=== PATIENT | male | born 1945 | race Caucasian/White ===

== ENCOUNTER 2021-02-21 22:09 | Observation (INO) | payer OTHER ==
[2021-02-21] MEDS ORDERED: MAG HYDROX/AL HYDROX/SIMETH 30 ML UNIT-DOSE CUP PO ONE (23:06)
[2021-02-21] MEDS ORDERED: ACETAMINOPHEN 325 MG TABLET (FP) PO ONE (23:07)
[2021-02-21] MEDS ORDERED: FAMOTIDINE 20 MG/50 ML IVPB 20 MG/50 ML MG IVPB ONE ×2 (23:07→23:20)
[2021-02-21] MEDS ORDERED: ASPIRIN 81 MG CHEWABLE TABLETS ONE (23:10)
[2021-02-21 23:13] LABS: EOS % 14.3 % (0-4.5); HEMATOCRIT 36.7 % (35.4-49); HEMOGLOBIN 12.7 GM/dL (11.7-16.9); MCH 32.6 pg (25.7-33.7); MCHC 34.5 g/dl (32.0-35.9); MEAN CELL VOLUME 94.6 fl (80-96); MEAN PLT VOLUME 7.9 fl (7.5-11.1); MONO % 8.8 % (3.8-10.2); NEUT % 48.9 % (42.8-82.8); PLATELET COUNT 181 10^3/uL (134-434); RBC 3.88 M/mm3 (4.00-5.60); RDW 14.1 % (11.9-15.9); WHITE BLOOD COUNT 7.7 K/mm3 (4.0-10.0)
[2021-02-21] MEDS: ASPIRIN 81 MG CHEWABLE TABLETS PO ONE ×2 (23:16→23:18)
[2021-02-21] MEDS ORDERED: ASPIRIN 81 MG CHEWABLE TABLETS PO ONE (23:17)
[2021-02-21] MEDS ORDERED: ACETAMINOPHEN 325 MG TABLET (FP) ONE (23:19)
[2021-02-21] MEDS ORDERED: MAG HYDROX/AL HYDROX/SIMETH 30 ML UNIT-DOSE CUP ONE (23:19)
[2021-02-21 23:29] LABS: PROTHROMBIN TIME (PATIENT) 12.3 SEC (9.7-13.0)
[2021-02-21 23:36] LABS: CHLORIDE 108 mmol/L (98-107); SODIUM 142 mmol/L (136-145)
[2021-02-21 23:40] LABS: CALCIUM 8.6 mg/dL (8.5-10.1)
[2021-02-21 23:41] LABS: ALBUMIN 3.7 g/dl (3.4-5.0); ANION GAP 6 MMOL/L (8-16); BLOOD UREA NITROGEN 21.4 mg/dL (7-18); CO2 27 mmol/L (21-32); GLUCOSE,RANDOM 116 mg/dL (74-106)
[2021-02-21 23:44] LABS: CREATININE 1.2 mg/dL (0.55-1.3); SGOT/AST 58 U/L (15-37); SGPT/ALT 42 U/L (13-61)
[2021-02-21 23:45] LABS: BILIRUBIN,TOTAL 0.4 mg/dL (0.2-1); TOT PROT 7.9 g/dl (6.4-8.2)
[2021-02-21 23:47] LABS: ALK PHOS 103 U/L (45-117)
[2021-02-22 04:14] LABS: URINE APPEARANCE CLEAR; URINE BILIRUBIN NEGATIVE (NEGATIVE); URINE COLOR YELLOW; URINE GLUCOSE (UA) NEGATIVE (NEGATIVE); URINE KETONE NEGATIVE (NEGATIVE); URINE LEUK ESTERASE NEGATIVE (NEGATIVE); URINE NITRITE NEGATIVE (NEGATIVE); URINE PROTEIN NEGATIVE (NEGATIVE)
[2021-02-22 07:08] VITALS: BMI 28.0
[2021-02-22 07:12] LABS: BASO % 0.5 % (0-2.0); EOS % 8.2 % (0-4.5); HEMATOCRIT 37.2 % (35.4-49); HEMOGLOBIN 12.8 GM/dL (11.7-16.9); LYMPH % 26.1 % (8-40); MCH 32.5 pg (25.7-33.7); MCHC 34.3 g/dl (32.0-35.9); MEAN CELL VOLUME 94.6 fl (80-96); MEAN PLT VOLUME 8.3 fl (7.5-11.1); MONO % 8.3 % (3.8-10.2); NEUT % 56.9 % (42.8-82.8); PLATELET COUNT 170 10^3/uL (134-434); RBC 3.93 M/mm3 (4.00-5.60); RDW 13.9 % (11.9-15.9); WHITE BLOOD COUNT 8.4 K/mm3 (4.0-10.0)
[2021-02-22 07:42] LABS: CHLORIDE 110 mmol/L (98-107); SODIUM 142 mmol/L (136-145)
[2021-02-22 08:00] LABS: ALBUMIN 3.5 g/dl (3.4-5.0); ANION GAP 8 MMOL/L (8-16); BLOOD UREA NITROGEN 17.9 mg/dL (7-18); CALCIUM 8.3 mg/dL (8.5-10.1); CO2 24 mmol/L (21-32); GLUCOSE,RANDOM 114 mg/dL (74-106)
[2021-02-22 08:02] LABS: SGPT/ALT 223 U/L (13-61)
[2021-02-22 08:03] LABS: CHOLESTEROL 163 mg/dL (50-200); PHOSPHOROUS 2.2 mg/dL (2.5-4.9); SGOT/AST 336 U/L (15-37)
[2021-02-22 08:04] LABS: ALK PHOS 109 U/L (45-117); BILIRUBIN,TOTAL 0.8 mg/dL (0.2-1); LDL CHOLESTEROL (ONLY SJRH) 95 mg/dL (5-100); MAGNESIUM 2.1 mg/dL (1.8-2.4); TOT PROT 7.4 g/dl (6.4-8.2); TRIGLYCERIDES 80 mg/dL (0-150)
[2021-02-22 08:31] LABS: HDL CHOLESTEROL 40 mg/dL (40-60)
[2021-02-22] MEDS ORDERED: NAPH,MB-DB/K PH,MBDB POWDER PACKET PO ONE (09:26)
[2021-02-22] MEDS ORDERED: ENOXAPARIN NA (PORCINE) 40 MG/0.4 ML DISP.SYRIN SQ SCH (10:00)
[2021-02-22] MEDS ORDERED: FAMOTIDINE 20 MG TABLET PO SCH (10:00)
[2021-02-22] MEDS: amLODIPine BESYLATE 5 MG TABLET (FP) PO SCH (12:12)
[2021-02-22] MEDS: TAMSULOSIN HCL 0.4 MG CAP PO SCH (12:12)
[2021-02-22 14:29] LABS: AMYLASE 41 U/L (25-115); LIPASE 60 U/L (73-393)
[2021-02-22] MEDS ORDERED: MELATONIN 5 MG TABLETS PO ONE (21:29)
[2021-02-23 07:00] VITALS: PULSE 56
[2021-02-23 08:26] LABS: BASO % 1.1 % (0-2.0); EOS % 17.3 % (0-4.5); HEMATOCRIT 35.5 % (35.4-49); HEMOGLOBIN 12.2 GM/dL (11.7-16.9); LYMPH % 26.1 % (8-40); MCH 32.8 pg (25.7-33.7); MCHC 34.3 g/dl (32.0-35.9); MEAN CELL VOLUME 95.6 fl (80-96); MEAN PLT VOLUME 8.4 fl (7.5-11.1); MONO % 9.9 % (3.8-10.2); NEUT % 45.6 % (42.8-82.8); PLATELET COUNT 166 10^3/uL (134-434); RBC 3.72 M/mm3 (4.00-5.60); RDW 14.4 % (11.9-15.9); WHITE BLOOD COUNT 6.2 K/mm3 (4.0-10.0)
[2021-02-23 08:50] LABS: ALBUMIN 3.2 g/dl (3.4-5.0); BLOOD UREA NITROGEN 12.8 mg/dL (7-18); CALCIUM 8.3 mg/dL (8.5-10.1)
[2021-02-23 08:51] LABS: MAGNESIUM 2.1 mg/dL (1.8-2.4)
[2021-02-23 08:53] LABS: CREATININE 0.9 mg/dL (0.55-1.3)
[2021-02-23 08:55] LABS: BILIRUBIN,TOTAL 1.9 mg/dL (0.2-1); TOT PROT 6.8 g/dl (6.4-8.2)
[2021-02-23] MEDS ORDERED: REGADENOSON 0.4 MG/5 ML PRE-FILLED SYRINGE IVPUSH ONE ×2 (09:44→10:45)
[2021-02-23 11:31] VITALS: BP 130/74; TEMP 98.8
[2021-02-23] MEDS: amLODIPine BESYLATE 5 MG TABLET (FP) PO SCH (13:16)
[2021-02-23] MEDS: TAMSULOSIN HCL 0.4 MG CAP PO SCH (13:16)
[2021-02-23 18:56] LABS: BILIRUBIN,DIRECT 0.6 mg/dL (0.0-0.2)
[2021-02-24 13:07] LABS: HEP B CORE AB, TOT Negative (Negative)
== END 2021-02-23 16:37 | disposition home or self-care (01) ==
LOC: JER 22:09 → JERBED 23:29 → UNDOADMOB 23:29 → OBSVTOIN 02-22 01:00 → INTOOBSV 02-22 01:00 → JERBED 02-22 04:07 → J4W 02-22 04:07 → JERBED 02-22 10:41
PROVIDERS: ADMIT Internal Medicine; ATTEND Student in an Organized Health Care Education/Training Program
PROC: 3E033GC Introduction of Other Therapeutic Substance into Peripheral Vein, Percutaneous Approach (ICD-10-PCS; principal; 2021-02-22)
PROC: 3E013GC Introduction of Other Therapeutic Substance into Subcutaneous Tissue, Percutaneous Approach (ICD-10-PCS; 2021-02-22)
DX: R07.2 Precordial pain (principal); R73.03 Prediabetes; G30.9 Alzheimer's disease, unspecified; F02.80 Dementia in other diseases classified elsewhere, unspecified severity, without behavioral disturbance, psychotic disturbance, mood disturbance, and anxiety; R10.13 Epigastric pain; R94.5 Abnormal results of liver function studies; N40.0 Benign prostatic hyperplasia without lower urinary tract symptoms; I10 Essential (primary) hypertension; E78.5 Hyperlipidemia, unspecified; I44.0 Atrioventricular block, first degree
CPT/HCPCS: 36415; 70450-TC; 71045-TC-FY; 74181-TC; 76705-TC; 78452-TC; 80053; 80061; 81003; 82150; 82248; 82607; 82747; 82962; 83036; 83540; 83550; 83690; 83721; 83735; 84100; 84443; 84484; 85014; 85025; 85610; 85730; 86704; 86706; 86707; 86708; 86709; 86803; 87340; 93005; 93010; 93017; 93306-TC; 96365; 96372; 96375; 99285-25; A9502; C9803; G0378; J2785; U0003; U0005

== ENCOUNTER 2021-06-01 04:33 | Day surgery (SDC) | payer OTHER ==
[2021-05-31 17:27] VITALS: BMI 27.7
[2021-06-01] MEDS ORDERED: PROPOFOL 20 ML ONE ×2 (08:29→10:10)
[2021-06-01] MEDS ORDERED: LIDOCAINE HCL/PF 2% SDV 5ML VIAL ONE (08:30)
[2021-06-01] MEDS ORDERED: DEXAMETHASONE SOD PHOSPHATE 4 MG/1 ML VIAL ONE (08:30)
[2021-06-01] MEDS ORDERED: ROCURONIUM BROMIDE 50 MG/5 ML SYRINGE ONE (08:36)
[2021-06-01] MEDS ORDERED: BUPIVACAINE HCL/PF 0.5% (5MG/ML) 10 ML VIAL ONE (09:08)
[2021-06-01] MEDS ORDERED: ceFAZolin SODIUM 1 GM VIAL ONE (09:18)
[2021-06-01] MEDS ORDERED: ONDANSETRON 4 MG/2 ML VIAL IVPUSH PRN (09:24)
[2021-06-01] MEDS ORDERED: oxyCODONE HCL 5 MG TABLET PO PRN (09:24)
[2021-06-01] MEDS ORDERED: LACTATED RINGERS SOLUTION 1,000 ML IV SCH (09:30)
[2021-06-01] MEDS ORDERED: BUPIVACAINE LIPOSOME/PF (EXPAREL) 266 MG/20 ML VIAL ONE (09:40)
[2021-06-01] MEDS ORDERED: ePHEDrine SULFATE 50 MG/1 ML AMPULE ONE (09:42)
[2021-06-01] MEDS ORDERED: BUPIVACAINE HCL/PF 0.5% (5MG/ML) 10 ML VIAL IJ ONE ×2 (09:57→10:11)
[2021-06-01] MEDS ORDERED: BUPIVACAINE LIPOSOME/PF (EXPAREL) 266 MG/20 ML VIAL NR ONE ×2 (09:57→10:11)
[2021-06-01] MEDS ORDERED: NEOSTIGMINE METHYLSULFATE 0.5 MG/ML - 10 ML MDV ONE (10:03)
[2021-06-01] MEDS ORDERED: GLYCOPYRROLATE 0.2 MG/1 ML VIAL ONE (10:04)
[2021-06-01] MEDS ORDERED: oxyCODONE HCL 5 MG TABLET ONE (14:00)
[2021-06-01 15:17] VITALS: BP 142/84; PULSE 62; TEMP 97.3
== END 2021-06-01 15:48 | disposition home or self-care (01) ==
LOC: JASU-SURG 04:33
PROVIDERS: ATTEND Surgery
PROC: 0FT44ZZ Resection of Gallbladder, Percutaneous Endoscopic Approach (ICD-10-PCS; principal; 2021-06-01 09:00)
DX: K81.9 Cholecystitis, unspecified (principal)
CPT/HCPCS: 94760